=== PATIENT | male | born 1995 | race Caucasian/White ===

== ENCOUNTER 2019-10-09 07:02 | Emergency (ER) | payer MEDICAID ==
[~2019-10-09] VITALS: Ht 172.7 cm; Wt 94.3 kg
[2019-10-09 07:19] VITALS: BP 153/90
[2019-10-09] MEDS ORDERED: methylPREDNISolone SOD SUCC 125 MG/2 ML VL IM ONE (08:00)
[2019-10-09] MEDS ORDERED: cefTRIAXone SOD 1,000 MG VL IM ONE (08:00)
== END 2019-10-09 08:16 | disposition home or self-care (01) ==
LOC: ER 07:02
DX: J03.00 Acute streptococcal tonsillitis, unspecified (principal)
CPT/HCPCS: 96372; 99283; J0696; J2930

== ENCOUNTER 2020-12-12 20:51 | Emergency (ER) | payer MEDICAID ==
[~2020-12-12] VITALS: Ht 180.3 cm; Wt 104.3 kg
[2020-12-12] MEDS ORDERED: NALOXONE HCL 1MG/ML 2ML SYRINGE IV ONE ×2 (20:55→21:15)
[2020-12-12 21:22] LABS: Basophils # (auto) 0.1 10 ^3/uL (0-0.2); Basophils % (auto) 0.7 % (0.0-2.0); Eosinophils # (auto) 0.2 10 ^3/uL (0-0.8); Eosinophils % (auto) 1.4 % (0.0-7.0); Hematocrit 46.1 % (41.0-53.0); Hemoglobin 15.4 g/dL (13.5-17.5); Lymphocytes # (auto) 7.3 10 ^3/uL (0.4-5.4); Lymphocytes % (auto) 41.8 % (10.0-50.0); Mean Corpuscular Hemoglobin 30.4 pg (28.0-32.0); Mean Corpuscular Hgb Conc. 33.4 g/dL (32.0-36.0); Mean Corpuscular Volume 91.1 fL (80.0-100.0); Monocytes # (auto) 1.3 10 ^3/uL (0-1.3); Monocytes % (auto) 7.6 % (0.0-12.0); Neutrophils # (auto) 8.5 10 ^3/uL (1.6-8.6); Neutrophils % (auto) 48.5 % (37.0-80.0); Nucleated Red Blood Cells % 0.2 %; Red Blood Cells 5.06 10^6/uL (4.5-5.90); White Blood Cell 17.5 10^3/uL (4.4-10.8)
[2020-12-12 21:48] LABS: Salicylate < 1.7 mg/dL (2.8-20.0)
[2020-12-12 21:49] LABS: Albumin 3.7 g/dL (3.4-5.0); BUN/Creatinine Ratio 5.4; Calcium 8.3 mg/dL (8.5-10.1); Potassium 3.3 mmol/L (3.5-5.1)
[2020-12-12 21:51] LABS: Bilirubin, Total 0.2 mg/dL (0.2-1.0); Total Protein 7.2 g/dL (6.4-8.2)
[2020-12-12 21:54] LABS: Acetaminophen < 2.0 ug/mL (10-30)
[2020-12-12 21:58] LABS: Amphetamine Screen, Urine NEGATIVE (NEGATIVE); Barbiturate Scree,Urine NEGATIVE (NEGATIVE); Benzodiazephine Screen, Urine POSITIVE (NEGATIVE); Cannabinoid Screen, Urine NEGATIVE (NEGATIVE); Cocaine Screen, Urine NEGATIVE (NEGATIVE); Opiate Scree,Urine NEGATIVE (NEGATIVE); Phencyclidine Screen, Urine NEGATIVE (NEGATIVE)
[2020-12-12 23:32] VITALS: BP 145/95
[2020-12-13] MEDS ORDERED: SODIUM CHLORIDE 0.9% 1,000 ML IV ONE ×2 (00:15→03:15)
[2020-12-13] MEDS ORDERED: POTASSIUM EFFERVESENT TAB 25 MEQ PO ONE (02:45)
== END 2020-12-13 04:01 | disposition home or self-care (01) ==
LOC: ER 20:54
DX: T40.601A Poisoning by unspecified narcotics, accidental (unintentional), initial encounter (principal); E87.6 Hypokalemia; R40.4 Transient alteration of awareness; F41.9 Anxiety disorder, unspecified; F32.9 Major depressive disorder, single episode, unspecified; Y92.89 Other specified places as the place of occurrence of the external cause
CPT/HCPCS: 36415; 71045; 80053; 80307; 80329; 85025; 93005; 96360; 99291; J2310; J7030

== ENCOUNTER 2025-07-10 00:44 | Emergency (ER) | payer MEDICAID, OTHER ==
[~2025-07-10] VITALS: Ht 172.7 cm; Wt 99.8 kg
[2025-07-10 00:45] VITALS: BP 183/122; PULSE 110; RESP 16; TEMP 98.2; O2SAT 96
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
== END 2025-07-10 02:27 | disposition home or self-care (01) ==
LOC: ER 00:44
DX: S33.9XXA Sprain of unspecified parts of lumbar spine and pelvis, initial encounter (principal); S00.83XA Contusion of other part of head, initial encounter; S09.8XXA Other specified injuries of head, initial encounter; F10.90 Alcohol use, unspecified, uncomplicated; E11.9 Type 2 diabetes mellitus without complications; W50.1XXA Accidental kick by another person, initial encounter; Y93.89 Activity, other specified; Y92.89 Other specified places as the place of occurrence of the external cause; Y99.8 Other external cause status; Y90.9 Presence of alcohol in blood, level not specified
CPT/HCPCS: 70450; 70486; 72100

== ENCOUNTER 2025-07-11 15:04 | Emergency (ER) | payer MEDICAID ==
[~2025-07-11] VITALS: Ht 172.7 cm; Wt 97.9 kg
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
[2025-07-11 16:41] VITALS: BP 157/89; PULSE 100; RESP 19; TEMP 98.9; O2SAT 99
== END 2025-07-11 16:44 | disposition home or self-care (01) ==
LOC: ER 15:04
DX: T14.8XXA Other injury of unspecified body region, initial encounter (principal); E11.9 Type 2 diabetes mellitus without complications; Y09 Assault by unspecified means; Y93.89 Activity, other specified; Y92.89 Other specified places as the place of occurrence of the external cause; Y99.8 Other external cause status